=== PATIENT | female | born 1995 | race Two or more races ===

== ENCOUNTER 2018-09-22 23:18 | Emergency (ER) | payer SELFPAY ==
[~2018-09-22] VITALS: Ht 167.6 cm; Wt 48.5 kg
[2018-09-23] MEDS ORDERED: SODIUM CHLORIDE 0.9% 1000ML BAG (SEPSIS BOLUS) IV ONE (03:15)
[2018-09-23] MEDS ORDERED: ACETAMINOPHEN 500MG TABLET PO ONE (03:15)
[2018-09-23 03:48] LABS: HEMATOCRIT. 24.1 % (36.0-48.0); HEMOGLOBIN. 7.5 g/dL (12.0-16.0); MEAN CORPUSCULAR VOLUME 57.9 fL (81.0-99.0); MEAN PLATELET VOLUME 8.5 fl (7.4-10.4); PLATELET 377 x1000/uL (130-400); RED BLOOD CELL COUNT 4.15 mill/uL (4.2-5.4); RED CELL DISTRIBUTION WIDTH 20.6 % (11.6-14.6)
[2018-09-23 03:55] LABS: INR 1.1; PROTHROMBIN TIME 11.3 sec (9.6-11.0)
[2018-09-23 03:59] LABS: CHLORIDE 105 mEq/L (98-107)
[2018-09-23 04:59] LABS: HCG SCREEN NEGATIVE
[2018-09-23 06:15] LABS: PLATELET ESTIMATE NORMAL
[2018-09-23] MEDS ORDERED: POTASSIUM CHLORIDE 20MEQ TABLET SR PO SCH (07:15)
[2018-09-23 07:53] LABS: CLARITY URINE CLOUDY (CLEAR); COLOR URINE YELLOW (YELLOW); KETONES URINE NEGATIVE (NEGATIVE); LEUKOCYTE ESTERASE URINE 2+ (NEGATIVE); NITRITE URINE POSITIVE (NEGATIVE); OCCULT BLOOD URINE 1+ (NEGATIVE); PH URINE 6.5 (4.5-8.0); PROTEIN URINE 1+ (NEGATIVE); SPECIFIC GRAVITY URINE 1.012 (1.005-1.030); UROBILINOGEN URINE 0.2 E.U./dL (0.2-1.0)
[2018-09-23] MEDS ORDERED: CEFTRIAXONE 1 G PREMIX 50 ML IV ONE (10:00)
[2018-09-23] MEDS ORDERED: LIDOCAINE HCL 1% 20ML VIAL (Pyxis) INJ INFIL ONE (10:30)
[2018-09-23] MEDS ORDERED: CEFTRIAXONE 1,000 MG in DEXTROSE 5% WATER 50 ML IV SCH (10:45)
[2018-09-23 13:00] VITALS: BP 107/68
== END 2018-09-23 13:43 | disposition home or self-care (01) ==
LOC: ER 23:18
DX: M79.18 Myalgia, other site (principal); N12 Tubulo-interstitial nephritis, not specified as acute or chronic; N39.0 Urinary tract infection, site not specified; J45.909 Unspecified asthma, uncomplicated; Z88.6 Allergy status to analgesic agent; V43.92XA Unspecified car occupant injured in collision with other type car in traffic accident, initial encounter; Y93.89 Activity, other specified; Y92.488 Other paved roadways as the place of occurrence of the external cause
CPT/HCPCS: 36415; 71045; 74176; 80053; 81003; 83605; 84703; 85025; 85610; 87040; 87077; 87086; 87186; 93005; 96365; 99284; J0696; J7030; J7060

== ENCOUNTER 2020-01-31 18:54 | Emergency (ER) | payer SELFPAY ==
[~2020-01-31] VITALS: Ht 167.6 cm; Wt 52.0 kg
[2020-01-31] MEDS ORDERED: CEFTRIAXONE SODIUM 250 MG/VIAL IM ONE (20:15)
[2020-01-31] MEDS ORDERED: AZITHROMYCIN 500 MG TABLET PO ONE (20:15)
[2020-01-31] MEDS ORDERED: LIDOCAINE HCL 1% 20ML VIAL (Pyxis) INJ INFIL ONE (20:15)
[2020-01-31 20:39] LABS: CLARITY URINE TURBID (CLEAR); COLOR URINE YELLOW (YELLOW); KETONES URINE TRACE (NEGATIVE); LEUKOCYTE ESTERASE URINE 2+ (NEGATIVE); NITRITE URINE NEGATIVE (NEGATIVE); OCCULT BLOOD URINE NEGATIVE (NEGATIVE); PH URINE 5.5 (4.5-8.0); PROTEIN URINE TRACE (NEGATIVE); SPECIFIC GRAVITY URINE 1.027 (1.005-1.030); UROBILINOGEN URINE 0.2 E.U./dL (0.2-1.0)
[2020-01-31 21:00] LABS: UCG SCREEN NEGATIVE
[2020-01-31 21:17] VITALS: BP 120/73
== END 2020-01-31 21:18 | disposition home or self-care (01) ==
LOC: ER 18:54
DX: A64 Unspecified sexually transmitted disease (principal); R30.0 Dysuria; J45.909 Unspecified asthma, uncomplicated; Z88.6 Allergy status to analgesic agent
CPT/HCPCS: 81003; 81025; 87086; 87491; 87591; 96372; 99283; J0696; J3490